=== PATIENT | female | born 1970 | race Caucasian/White ===

== ENCOUNTER 2023-05-30 10:59 | Outpatient (CLI) | payer BC, SELFPAY ==
--- NOTE | ~2023-05-30 | DEXA_ITS ---
Bone Density Report Name: KAIDEN DE LEON Age: 52 Sex: Female Ethnicity: White Date of : 1970 Indication: hyperparathyroidism; height loss; prior fracture; Referring Provider: Parker, Hunter Toro Study: Bone densitometry was performed. Exam Date: May 30, 2023 Accession number: [id number] Bone Density: Region BMD T-score Z-score Classification AP Spine(L1, L2, L3) 1.097 0.7 1.5 Normal Femoral Neck (Left) 0.697 -1.4 -0.6 Osteopenia Total Hip (Left) 0.882 -0.5 0.0 Normal Femoral Neck (Right) 0.678 -1.5 -0.8 Osteopenia Total Hip (Right) 0.874 -0.6 -0.1 Normal Femoral Neck Mean 0.687 -1.5 -0.7 Osteopenia Total Hip Mean 0.878 -0.5 0.0 Normal World Health Organization criteria for BMD impression classify patients as: Normal (T-score at or above -1.0), Osteopenia (T-score between -1.0 and -2.5), or Osteoporosis (T-score at or below -2.5). 10-year Fracture Risk: FRAX not reported because: Premenopausal woman Prior hip or vertebral fracture Clinical Information Provided by Patient: Have had a previous hip or vertebral fracture Has had a low trauma fracture Has used the following medications: Vitamin D, Calcium Has the following medical conditions: Hyperparathyroidism Patient maximum height was 67 No regular weight bearing exercise Drinks caffeinated beverages Onset of menses at age 15 Premenopausal Number of children 2 Impression: The patient's bone mass is within expected range for age, gender and ethnicity. The patient has risk factors, including: previous fracture. Discussion: BONE DENSITY IS WITHIN EXPECTED LIMITS FOR AGE, SEX AND RACE. HISTORY OF FRACTURE. Although there is a predictable association between low bone mass and the risk of osteoporotic fractures in untreated postmenopausal women, there are no data relating bone density and fracture risk in younger women. The ISCD position is that the diagnosis of ?low bone mass? or ?osteoporosis? should not be made on densitometric criteria alone. WHO criteria only apply to postmenopausal women. Further evaluation should be considered given the patient's history of fracture at a young age. The patient should follow a healthful lifestyle (good nutrition with adequate calcium and vitamin D, and appropriate weight-bearing exercise). Follow-Up: Consider a repeat BMD and Vertebral Fracture Assessment (VFA) exam in 2 years or sooner if medically necessary, to reassess this patient's status. Reported by: Dr. Baljit Riley on 05/30/2023 11:27:00 AM. Reviewed, dictated and finalized at location [facility]
== END 2023-05-30 11:00 | disposition home or self-care (01) ==
LOC: CHSIMG 11:03
PROVIDERS: Visit Provider Internal Medicine
DX: Z78.0 Asymptomatic menopausal state (principal); M85.89 Other specified disorders of bone density and structure, multiple sites
CPT/HCPCS: 77080

== ENCOUNTER 2023-06-19 13:41 | Outpatient (CLI) | payer BC, SELFPAY ==
--- NOTE | ~2023-06-19 | MR_ITS ---
EXAMINATION: MR lumbar spine wo con DATE: 06/19/2023 14:14 INDICATION: Back pain TECHNIQUE: Magnetic resonance imaging (MRI) of the lumbar spine was performed without intravenous con trast. Sequences included sagittal T2-weighted FSE, sagittal T2-weighted FS FSE, sagittal T1-weighted FSE, and axial T2-weighted FSE. COMPARISON: None FINDINGS: L5 laminectomy. L5-S1 instrumented anterior and posterior spinal fusion with interbody bone graft cag e and bilateral vertical chanel and pedicle screw fixation. 2-3 mm retrolisthesis L4 on L5. One-2 mm ret rolisthesis L3 on L4. Relatively recent L1 compression fracture with 20% anterior vertebral body heig ht loss and marrow edema surrounding the linear low signal intensity fracture line which underlies th e depressed superior endplate. Remaining vertebral body heights are normal. Moderate to severe disc h eight loss with left-sided fibrovascular degenerative endplate changes at L4-L5. Annular fissures at T11-T12, T12-L1, L3-L4 and L4-L5. There is a small central disc extrusion at T11-T12 with disc materi al extending a few mm beyond the superior endplate margin of T12. The conus medullaris terminates at L1-L2. There is normal signal in the caudal spinal cord. Paravertebral soft tissues are unremarkable. The following disc levels are specifically discussed: T12-L1: Disc is mildly bulging with superimposed annular fissure and small left paracentral disc extr usion with disc material extending a couple mm cephalad to the level of the inferior endplate of T12. There is moderate bilateral facet joint osteoarthritis. There is mild right and minimal left neural foraminal stenosis. There is mild central canal stenosis. L1-L2: Disc is bulging. There is moderate bilateral facet joint osteoarthritis. There is minimal bila teral neural foraminal stenosis. There is minimal central canal stenosis. L2-L3: Disc is bulging. There is mild right and mild to moderate left facet joint osteoarthritis. The re is mild bilateral neural foraminal stenosis. There is minimal central canal stenosis. L3-L4: Disc is bulging. There is severe bilateral facet joint osteoarthritis. There is mild bilateral neural foraminal stenosis. There is mild central canal stenosis. L4-L5: Large disc bulge. There is severe bilateral facet joint osteoarthritis. There is moderate bila teral neural foraminal stenosis. There is moderate central canal stenosis. L5-S1: Disc space and bilateral facet joints are fused. There is mild right neural foraminal stenosis . There is no central canal stenosis. IMPRESSION: 1. Recent L1 compression fracture with one third anterior vertebral body height loss. 2. L5 laminectomy and combined instrumented L5-S1 anterior and posterior spinal fusion. 3. Moderate to severe spondylosis at L4-L5 with mild spondylosis in the more cephalad lumbar and lowe r thoracic spine. Reviewed, dictated and finalized at location [facility]. IMPRESSION: 1. Recent L1 compression fracture with one third anterior vertebral body height loss. 2. L5 laminectomy and combined instrumented L5-S1 anterior and posterior spinal fusion. 3. Moderate to severe spondylosis at L4-L5 with mild spondylosis in the more ce phalad lumbar and lower thoracic spine.
== END 2023-06-19 13:42 ==
LOC: GOSHIMG 13:43
PROVIDERS: PCP Family Medicine; Visit Provider Internal Medicine
DX: M54.9 Dorsalgia, unspecified (principal); M96.1 Postlaminectomy syndrome, not elsewhere classified; M47.816 Spondylosis without myelopathy or radiculopathy, lumbar region; R29.890 Loss of height
CPT/HCPCS: 72148

== ENCOUNTER 2023-07-11 14:45 | Outpatient (CLI) | payer BC, SELFPAY ==
--- NOTE | ~2023-07-11 | XR_ITS ---
XR lumbar spine 2-3V DATE: 07/11/2023 15:15 INDICATION: Fusion at L4-5 in 2009. L1 compression fracture this February. TECHNIQUE: AP, lateral, coned lateral lumbosacral views COMPARISON: 06/19/2023 MRI lumbar spine FINDINGS: Stable moderately prominent anterior wedge compression fracture of L1, present on 06/19/2023 MR examination. Status post L5 laminectomy and posterior and interbody surgical fusion at L5-S1. No fracture or dislocation or spondylolisthesis is noted otherwise. There is moderately severe degenerative disease and mild retrolisthesis at L4-5. The sacroiliac joints are intact. Incidentally noted is a prominent amount of fecal material in the colon. IMPRESSION: Stable L1 compression fracture since 06/19/2023 Status post laminectomy and posterior surgical fusion at L5-S1 Moderately severe degenerative disc disease and mild retrolisthesis at L4-5 Reviewed, dictated and finalized at location B.
--- NOTE | ~2023-07-11 | XR_ITS ---
XR thoracic spine 3V DATE: 07/11/2023 15:14 INDICATION: Thoracic and lumbar pain, radiculopathy TECHNIQUE: AP, lateral, swimmer views COMPARISON: None FINDINGS: There is prominent degenerative disc disease of the lower cervical spine. There is mild degenerative spurring of the thoracic spine. No fracture or dislocation or bone destruc tion of the thoracic spine. The thoracic pedicles are intact. No paraspinal soft tissue thickening. Probable extensive bilateral pulmonary interstitial fibrotic changes; left basilar infiltrate and/ate lectasis IMPRESSION: Degenerative changes of the thoracic and lower cervical spine. Reviewed, dictated and finalized at location B.
== END 2023-07-11 14:46 | disposition home or self-care (01) ==
PROVIDERS: Visit Provider Pain Medicine Interventional Pain Medicine
DX: M47.26 Other spondylosis with radiculopathy, lumbar region (principal); M47.27 Other spondylosis with radiculopathy, lumbosacral region; F33.1 Major depressive disorder, recurrent, moderate; S32.010D Wedge compression fracture of first lumbar vertebra, subsequent encounter for fracture with routine healing; X58.XXXD Exposure to other specified factors, subsequent encounter; M51.36 Other intervertebral disc degeneration, lumbar region; Z98.1 Arthrodesis status
CPT/HCPCS: 72072; 72100

== ENCOUNTER → 2023-08-22 11:11 | Outpatient (CLI) | payer BC, SELFPAY ==
--- NOTE | ~2023-08-22 | MR_ITS ---
MRI of the lumbar spine Clinical History: Compression fracture Technique: Axial T2-weighted images, and sagittal T1-weighted, T2-weighted, and T2 fat-sat images wer e acquired. COMPARISON: 06/19/2023 Findings: Mild to moderate compression fracture of L1 is similar to prior exam, with mild marrow bernardo a and loss of height. Appearance is unchanged. No new fracture identified. There is posterior fixatio n from L5 to S1 with bilateral rods and transpedicular screws present, as well as interbody fusion de vice at this level. L5 laminectomy present. At L1-L2, there is no significant disc bulge or herniation. There is minimal facet hypertrophy. No ce ntral canal stenosis or neural foraminal narrowing. At L2-L3, there is no disc bulge or herniation. There is minimal facet hypertrophy. No central canal stenosis or neural foraminal narrowing. At L3-L4, there is minimal disc bulge with moderate facet hypertrophy. No central canal stenosis or n eural foraminal narrowing. At L4-L5, there is severe degenerative disc narrowing. There is diffuse disc bulge/protrusion with se prince facet arthropathy. There is severe central canal stenosis/thecal sac compression and severe bila teral neural foraminal compromise. At L5-S1, there is no disc bulge or herniation. There is posterior decompression. No central canal st enosis or neural foraminal narrowing. Paravertebral soft tissues are unremarkable, aside from expected postoperative change. Impression: L1 compression fracture is essentially unchanged from prior exam. Severe degenerative spondylosis at the L4-L5 level, as detailed above. Posterior and interbody fusion from L5 to S1, as detailed above. Reviewed, dictated and finalized at [facility]. Impression: L1 compression fracture is essentially unchanged from prior exam. Severe degenerative spondylosis at the L4-L5 level, as detailed above. Posterior and interbody fusion from L5 to S1, as detailed above.
--- NOTE | ~2023-08-22 | XR_ITS ---
Lumbosacral Spine: AP and lateral views, with neutral, flexion, and extension positioning. Clinical History: L1 compression fracture COMPARISON: 07/11/2023 Findings: The normal lordotic curve is maintained. L1 compression fracture is unchanged. Posterior an d interbody fusion at L5-S1 is unchanged. There is severe degenerative disc narrowing at L4-L5, with minimal grade 1 retrolisthesis at this level. The sacroiliac joints are normally outlined. Impression: Stable L1 compression fracture. Severe degenerative spondylosis at L4-L5 level, with grade 1 retrolisthesis at this level. No instabi lity evident. Posterior and interbody fusion from L5 to S1. Reviewed, dictated and finalized at location . Impression: Stable L1 compression fracture. Severe degenerative spondylosis at L4-L5 level, with grade 1 retrolisthesis at this level. No instability evident. Posterior and interbody fusion from L5 to S1.
== END ==
PROVIDERS: PCP Student in an Organized Health Care Education/Training Program; Visit Provider Neurological Surgery
DX: S32.010A Wedge compression fracture of first lumbar vertebra, initial encounter for closed fracture (principal); M43.06 Spondylolysis, lumbar region; M43.27 Fusion of spine, lumbosacral region
CPT/HCPCS: 72110; 72148